=== PATIENT | female | born 1960 | race Caucasian/White ===

== ENCOUNTER 2018-08-02 12:26 | Inpatient (IN) | payer OTHER ==
[~2018-08-02] VITALS: Ht 170.2 cm; Wt 88.1 kg
[~2018-08-02 12:26] MED LIST: HYDR-3237 PO; METF500T17 PO; SULF1TAB24 PO
[2018-08-02] MEDS ORDERED: CEFTRIAXONE PMX 1GM/50ML 50 ML IVPB ONE (13:00)
[2018-08-02] MEDS ORDERED: SODIUM CHLORIDE FLUSH 10ML SYR IVF ONE (13:00)
[2018-08-02] MEDS ORDERED: CEFTRIAXONE PMX 1GM/50ML 50 ML ONE (13:13)
--- NOTE | 2018-08-02 13:16 | NUR ---
BLOOD CULTURES X 2 COLLECTED BY LAB, PT IN BED, NAD, NO NEEDS AT THIS TIME, RN TO INITIATE ABX PER MAR
[2018-08-02 13:21] LABS: BASOPHILS # (AUTO) 0.09 x10^3/uL (0-0.1); BASOPHILS % (AUTO) 1 % (0-1); EOSINOPHILS # (AUTO) 0.25 x10^3/uL (0-0.4); EOSINOPHILS % (AUTO) 2 % (1-7); LYMPHOCYTES # (AUTO) 2.23 x10^3/uL (1-3.4); LYMPHOCYTES % (AUTO) 19 % (22-44); MD NO; MEAN CORPUSCULAR HEMOGLOBIN 28.2 pg (27.0-34.8); MEAN CORPUSCULAR VOLUME 82.9 fL (80-100); MEAN PLATELET VOLUME 8.5 fL (7.4-10.4); MONOCYTES # (AUTO) 0.68 x10^3/uL (0.2-0.8); MONOCYTES % (AUTO) 6 % (2-9); NEUTROPHILS # (AUTO) 8.37 x10^3/uL (1.8-6.8); NEUTROPHILS % (AUTO) 72 % (42-75); PLATELET COUNT 363 x10^3/uL (130-400); RED BLOOD COUNT 4.37 x10^6/uL (3.82-5.3); RED CELL DISTRIBUTION WIDTH 14.6 % (9.6-15.2)
[2018-08-02 13:29] LABS: ALBUMIN 3.3 g/dL (3.4-5.0); ANION GAP 8 mmol/L (5-15); CALCIUM 8.5 mg/dL (8.5-10.1); CHLORIDE 106 mmol/L (98-107); CREATININE 1.21 mg/dL (0.55-1.02)
--- NOTE | 2018-08-02 14:35 | NUR ---
BREAK RN: PT PLACED ON CONT PULSE OX, NIBP. VSS. NO ACUTE DISTRESS NOTED. ROCEPHIN COMPLETED. NO NEEDS REQUESTED AT THIS TIME.
--- NOTE | 2018-08-02 14:55 | NUR ---
BREAK RN: BEDSIDE REPORT TO OSMAN PELLETIER.
[2018-08-02] MEDS ORDERED: SODIUM CHLORIDE FLUSH 10ML SYR IVF PRN (15:00)
[2018-08-02] MEDS ORDERED: DULO60CA55 PO (15:17)
[2018-08-02] MEDS ORDERED: TRAZ300T2 PO (15:17)
[2018-08-02] MEDS ORDERED: INSU100V13 SC ×2 (15:17)
--- NOTE | 2018-08-02 15:31 | NUR ---
HOSPTIALIST AT BEDSIDE TO DISCUSS POC
[2018-08-02 15:42] LABS: HCT (SEDRATE) 36.3 % (34.6-47.8)
[2018-08-02] MEDS ORDERED: hydrALAzine 20 MG/ML, 1ML IVPush PRN (16:00)
[2018-08-02] MEDS ORDERED: ACETAMINOPHEN 325 MG TABLET PO PRN ×2 (16:00→21:00)
[2018-08-02] MEDS ORDERED: VANCOMYCIN PER PHARMACY MC PRN (16:00)
[2018-08-02] MEDS ORDERED: ONDANSETRON 2MG/ML, 2ML IVPush PRN (16:00)
[2018-08-02] MEDS ORDERED: OXYcodone/APAP 5/325MG TABLET PO PRN (16:00)
[2018-08-02] MEDS ORDERED: LABETALOL 5 MG/ML SYRINGE IVPush PRN (16:00)
[2018-08-02] MEDS ORDERED: NICOTINE 14MG/24 HR PATCH.TD24 ONE (16:24)
[2018-08-02] MEDS ORDERED: OXYcodone/APAP 5/325MG TABLET ONE (16:25)
[2018-08-02] MEDS ORDERED: DEXTROSE 50%, 50ML SYRINGE IVPush PRN (16:30)
[2018-08-02] MEDS ORDERED: GLUCAGON 1 MG IM PRN (16:30)
[2018-08-02] MEDS ORDERED: DEXTROSE 4 GM TAB.CHEW PO PRN (16:30)
--- NOTE | 2018-08-02 16:34 | NUR ---
KAM LARSON CALLED TO CLARIFY DIET ORDER, PT INFORMED THAT SURGEON WILL BE COMING TO ASSESS PT.
--- NOTE | 2018-08-02 16:37 | NUR ---
NEO STATES THAT SHE WILL CHANGE ANALGESIC ORDER TO IV SINCE PT IS NPO
[2018-08-02 16:47] LABS: HEMOGLOBIN A1C 7.8 % (4.2-6.3)
[2018-08-02] MEDS: AMPICILLIN/SULBACTAM 3 GM in SODIUM CHLORIDE 0.9% 100 ML IV SCH ×2 (16:51→23:18)
[2018-08-02] MEDS: NICOTINE 14MG/24 HR PATCH.TD24 TD SCH (16:52)
[2018-08-02] MEDS ORDERED: morphine SULFATE 10 MG/ML, 1ML IVPush PRN (17:00)
[2018-08-02] MEDS ORDERED: MORPHINE SULFATE 4 MG/ML, 1ML ONE (17:02)
[2018-08-02] MEDS ORDERED: MORPHINE SULFATE 4 MG/ML, 1ML IVPush PRN (17:33)
[2018-08-02 17:44] VITALS: BP 105/65
[2018-08-02] MEDS ORDERED: PHARMACOKINETIC MONITORING MC PRN (18:30)
[2018-08-02] MEDS ORDERED: PHARMACOKINETIC CONSULTATION MC ONE (18:30)
[2018-08-02 18:52] VITALS: BP 111/73
[2018-08-02] MEDS: VANCOMYCIN 1,400 MG in SODIUM CHLORIDE 0.9% 250 ML IV SCH (19:31)
[2018-08-02] MEDS: INSULIN LISPRO 100 UNITS/ML, PEN SQ-INSULIN SCH (20:01)
[2018-08-02] MEDS ORDERED: FENTANYL PF 100 MCG/2ML ONE (20:42)
[2018-08-02] MEDS ORDERED: MIDAZOLAM 1 MG/ML, 2ML ONE (20:42)
[2018-08-02] MEDS ORDERED: FENTANYL PF 100 MCG/2ML IV PRN (21:00)
[2018-08-02] MEDS: TRAZODONE 150MG TABLET PO SCH (21:00)
[2018-08-02] MEDS ORDERED: PROMETHAZINE 25 MG/ML, 1ML IV PRN (21:00)
[2018-08-02] MEDS ORDERED: OXYcodone 5 MG/5 ML ORAL.SOL UDC PO PRN ×2 (21:00→23:30)
[2018-08-02] MEDS ORDERED: LABETALOL 5MG/ML, 20ML IV PRN (21:00)
[2018-08-02] MEDS ORDERED: hydrALAzine 20 MG/ML, 1ML IV PRN (21:00)
[2018-08-02] MEDS ORDERED: ONDANSETRON 2MG/ML, 2ML IV PRN ×2 (21:00→23:30)
[2018-08-02] MEDS ORDERED: HYDROmorphone 2 MG/ML, 1ML IVPush PRN (21:00)
[2018-08-02] MEDS ORDERED: INSULIN DETEMIR 100 UNITS/ML, PEN SQ-INSULIN SCH (21:00)
[2018-08-02] MEDS ORDERED: BUPIVACAINE/PF 0.5% ONE (21:01)
[2018-08-02] MEDS ORDERED: BUPIVACAINE/PF 0.5% INFIL ONE (21:52)
[2018-08-02] MEDS ORDERED: DEXAMETHASONE 4 MG/ML, 1ML ONE (21:56)
[2018-08-02] MEDS ORDERED: ROCURONIUM 10MG/ML,5ML ONE (21:56)
[2018-08-02] MEDS ORDERED: PROPOFOL 10 MG/ML, 20ML ONE (21:56)
[2018-08-02] MEDS ORDERED: ONDANSETRON 2MG/ML, 2ML ONE (21:56)
[2018-08-02] MEDS ORDERED: OXYcodone 5 MG/5 ML ORAL.SOL UDC ONE (22:27)
[2018-08-02] MEDS: DULOXETINE 30 MG CAPSULE.DR PO SCH (23:13)
[2018-08-02] MEDS: SODIUM CHLORIDE FLUSH 10ML SYR IVF SCH (23:16)
[2018-08-02] MEDS ORDERED: morphine SULFATE 10 MG/ML, 1ML IV PRN (23:30)
[2018-08-02] MEDS ORDERED: MORPHINE SULFATE 4 MG/ML, 1ML IV PRN (23:30)
[2018-08-02] MEDS ORDERED: SODIUM CHLORIDE 0.9% 1,000 ML IV SCH (23:30)
[2018-08-03] MEDS: INSULIN GLARGINE 100 UNITS/ML, PEN SQ-INSULIN SCH ×3 (00:25→21:04)
[2018-08-03 01:00] VITALS: BP 110/63
[2018-08-03] MEDS: AMPICILLIN/SULBACTAM 3 GM in SODIUM CHLORIDE 0.9% 100 ML IV SCH ×4 (05:16→23:20)
[2018-08-03 05:40] LABS: BASOPHILS # (AUTO) 0.04 x10^3/uL (0-0.1); BASOPHILS % (AUTO) 1 % (0-1); EOSINOPHILS # (AUTO) 0.02 x10^3/uL (0-0.4); EOSINOPHILS % (AUTO) 0 % (1-7); LYMPHOCYTES # (AUTO) 0.85 x10^3/uL (1-3.4); LYMPHOCYTES % (AUTO) 10 % (22-44); MD NO; MEAN CORPUSCULAR HEMOGLOBIN 28.4 pg (27.0-34.8); MEAN CORPUSCULAR VOLUME 83.5 fL (80-100); MEAN PLATELET VOLUME 8.6 fL (7.4-10.4); MONOCYTES % (AUTO) 1 % (2-9); NEUTROPHILS # (AUTO) 7.39 x10^3/uL (1.8-6.8); NEUTROPHILS % (AUTO) 88 % (42-75); PLATELET COUNT 298 x10^3/uL (130-400)
[2018-08-03 05:41] LABS: CHLORIDE 107 mmol/L (98-107)
[2018-08-03 06:00] LABS: ANION GAP 5 mmol/L (5-15); CALCIUM 8.2 mg/dL (8.5-10.1)
[2018-08-03 06:42] VITALS: BP 99/61
[2018-08-03] MEDS: INSULIN LISPRO 100 UNITS/ML, PEN SQ-INSULIN SCH ×4 (07:00→21:05)
[2018-08-03] MEDS: HEPARIN 5,000 UNITS/ML, 1ML SQ SCH ×3 (07:30→23:20)
[2018-08-03] MEDS ORDERED: OXYcodone 5 MG/5 ML ORAL.SOL UDC PO PRN (07:30)
[2018-08-03] MEDS: HYDROcodone/APAP 5/325 TABLET PO PRN ×2 (07:46→16:58)
[2018-08-03] MEDS: SODIUM CHLORIDE FLUSH 10ML SYR IVF SCH ×4 (09:00→20:54)
[2018-08-03] MEDS ORDERED: MORPHINE SULFATE 4 MG/ML, 1ML IVPush PRN (09:33)
[2018-08-03] MEDS: VANCOMYCIN 1,400 MG in SODIUM CHLORIDE 0.9% 250 ML IV SCH (09:54)
[2018-08-03] MEDS: DOCUSATE 100 MG CAPSULE PO SCH ×2 (09:56→20:53)
[2018-08-03] MEDS: DULOXETINE 30 MG CAPSULE.DR PO SCH ×2 (09:57→20:53)
[2018-08-03 14:36] VITALS: BP 103/63
[2018-08-03] MEDS: NICOTINE 14MG/24 HR PATCH.TD24 TD SCH (16:58)
[2018-08-03 19:50] VITALS: BP 120/70
[2018-08-03] MEDS: TRAZODONE 150MG TABLET PO SCH (21:00)
[2018-08-03] MEDS ORDERED: SODIUM CHLORIDE 0.9% 1,000 ML IV SCH (23:30)
[2018-08-04 03:02] VITALS: BP 139/89
[2018-08-04] MEDS ORDERED: VANCOMYCIN 1,400 MG in SODIUM CHLORIDE 0.9% 250 ML IV SCH (04:00)
[2018-08-04] MEDS: AMPICILLIN/SULBACTAM 3 GM in SODIUM CHLORIDE 0.9% 100 ML IV SCH ×2 (05:21→11:28)
[2018-08-04 06:27] LABS: CHLORIDE 109 mmol/L (98-107)
[2018-08-04 06:33] LABS: ANION GAP 4 mmol/L (5-15); CALCIUM 8.2 mg/dL (8.5-10.1); CREATININE 1.15 mg/dL (0.55-1.02)
[2018-08-04 06:41] VITALS: BP 111/71
[2018-08-04] MEDS: INSULIN LISPRO 100 UNITS/ML, PEN SQ-INSULIN SCH ×4 (07:00→20:39)
[2018-08-04] MEDS ORDERED: MORPHINE SULFATE 4 MG/ML, 1ML IVPush PRN (07:30)
[2018-08-04] MEDS: HYDROcodone/APAP 5/325 TABLET PO PRN ×2 (07:41→20:38)
[2018-08-04] MEDS: DOCUSATE 100 MG CAPSULE PO SCH ×2 (09:00→20:38)
[2018-08-04] MEDS: INSULIN GLARGINE 100 UNITS/ML, PEN SQ-INSULIN SCH ×2 (09:00→20:39)
[2018-08-04] MEDS: SODIUM CHLORIDE FLUSH 10ML SYR IVF SCH ×4 (09:00→19:28)
[2018-08-04] MEDS: HEPARIN 5,000 UNITS/ML, 1ML SQ SCH ×3 (09:12→23:03)
[2018-08-04] MEDS: NICOTINE 14MG/24 HR PATCH.TD24 TD SCH (09:13)
[2018-08-04] MEDS: DULOXETINE 30 MG CAPSULE.DR PO SCH ×2 (09:14→20:38)
[2018-08-04 12:47] VITALS: BP 104/67
[2018-08-04] MEDS: ACETAMINOPHEN 325 MG TABLET PO PRN (16:35)
[2018-08-04] MEDS: DAPTOMYCIN 600 MG in SODIUM CHLORIDE 0.9% 100 ML IV SCH (19:27)
[2018-08-04 19:29] VITALS: BP 119/73
[2018-08-04] MEDS: SODIUM CHLORIDE 0.9% 1,000 ML IV SCH (23:03)
[2018-08-05 04:04] VITALS: BP 115/73
[2018-08-05 06:36] LABS: HCT (SEDRATE) 31.1 % (34.6-47.8)
[2018-08-05] MEDS: INSULIN LISPRO 100 UNITS/ML, PEN SQ-INSULIN SCH ×4 (07:00→20:54)
[2018-08-05 07:21] VITALS: BP 132/80
[2018-08-05] MEDS: metFORMIN 850 MG TABLET PO SCH ×2 (08:49→16:36)
[2018-08-05] MEDS: DOCUSATE 100 MG CAPSULE PO SCH ×2 (08:49→20:54)
[2018-08-05] MEDS: NICOTINE 14MG/24 HR PATCH.TD24 TD SCH (08:50)
[2018-08-05] MEDS: HEPARIN 5,000 UNITS/ML, 1ML SQ SCH ×2 (08:50→17:25)
[2018-08-05] MEDS: DULOXETINE 30 MG CAPSULE.DR PO SCH ×2 (08:50→20:54)
[2018-08-05] MEDS: SODIUM CHLORIDE FLUSH 10ML SYR IVF SCH ×4 (08:55→20:54)
[2018-08-05] MEDS: HYDROcodone/APAP 5/325 TABLET PO PRN (12:53)
[2018-08-05 12:59] VITALS: BP 127/81
[2018-08-05] MEDS: SODIUM CHLORIDE 0.9% 1,000 ML IV SCH (15:41)
[2018-08-05 19:00] VITALS: BP 116/70
[2018-08-05] MEDS: DAPTOMYCIN 600 MG in SODIUM CHLORIDE 0.9% 100 ML IV SCH (20:45)
[2018-08-05] MEDS: INSULIN GLARGINE 100 UNITS/ML, PEN SQ-INSULIN SCH (20:53)
[2018-08-06] MEDS: HEPARIN 5,000 UNITS/ML, 1ML SQ SCH ×3 (02:12→17:37)
[2018-08-06 02:19] VITALS: BP 116/72
[2018-08-06 05:42] LABS: ANION GAP 7 mmol/L (5-15); CALCIUM 8.6 mg/dL (8.5-10.1); CHLORIDE 108 mmol/L (98-107)
[2018-08-06 05:43] LABS: CREATININE 1.02 mg/dL (0.55-1.02)
[2018-08-06] MEDS: INSULIN LISPRO 100 UNITS/ML, PEN SQ-INSULIN SCH ×4 (07:00→20:59)
[2018-08-06 07:30] VITALS: BP 131/80
[2018-08-06] MEDS: NICOTINE 14MG/24 HR PATCH.TD24 TD SCH (08:02)
[2018-08-06] MEDS: metFORMIN 850 MG TABLET PO SCH ×2 (08:02→17:38)
[2018-08-06] MEDS: DULOXETINE 30 MG CAPSULE.DR PO SCH ×2 (08:02→20:47)
[2018-08-06] MEDS: SODIUM CHLORIDE FLUSH 10ML SYR IVF SCH ×4 (09:00→20:52)
[2018-08-06 13:43] VITALS: BP 111/70
[2018-08-06] MEDS: HYDROcodone/APAP 5/325 TABLET PO PRN (15:08)
[2018-08-06 19:15] VITALS: BP 121/76
[2018-08-06] MEDS: DAPTOMYCIN 600 MG in SODIUM CHLORIDE 0.9% 100 ML IV SCH (20:47)
[2018-08-06] MEDS: INSULIN GLARGINE 100 UNITS/ML, PEN SQ-INSULIN SCH (20:58)
[2018-08-07 01:40] VITALS: BP 147/83
[2018-08-07] MEDS: HEPARIN 5,000 UNITS/ML, 1ML SQ SCH ×3 (02:00→17:30)
[2018-08-07] MEDS: INSULIN LISPRO 100 UNITS/ML, PEN SQ-INSULIN SCH ×4 (07:00→19:40)
[2018-08-07 07:20] VITALS: BP 117/75
[2018-08-07] MEDS: NICOTINE 14MG/24 HR PATCH.TD24 TD SCH (08:19)
[2018-08-07] MEDS: DULOXETINE 30 MG CAPSULE.DR PO SCH ×2 (08:19→20:49)
[2018-08-07] MEDS: metFORMIN 850 MG TABLET PO SCH ×2 (08:19→17:30)
[2018-08-07] MEDS: ACETAMINOPHEN 325 MG TABLET PO PRN (08:19)
[2018-08-07] MEDS: SODIUM CHLORIDE FLUSH 10ML SYR IVF SCH ×4 (08:26→20:50)
[2018-08-07 13:35] VITALS: BP 113/70
[2018-08-07 19:38] VITALS: BP 119/74
[2018-08-07] MEDS: HYDROcodone/APAP 5/325 TABLET PO PRN (19:43)
[2018-08-07] MEDS: DAPTOMYCIN 600 MG in SODIUM CHLORIDE 0.9% 100 ML IV SCH (19:43)
[2018-08-07] MEDS: INSULIN GLARGINE 100 UNITS/ML, PEN SQ-INSULIN SCH (20:49)
[2018-08-08 01:38] VITALS: BP 111/68
[2018-08-08] MEDS: HEPARIN 5,000 UNITS/ML, 1ML SQ SCH ×3 (02:00→16:35)
[2018-08-08] MEDS: INSULIN LISPRO 100 UNITS/ML, PEN SQ-INSULIN SCH ×4 (07:00→19:29)
[2018-08-08] MEDS: SODIUM CHLORIDE FLUSH 10ML SYR IVF SCH ×4 (07:22→20:28)
[2018-08-08 07:51] VITALS: BP 121/74
[2018-08-08] MEDS: DULOXETINE 30 MG CAPSULE.DR PO SCH ×2 (09:05→20:28)
[2018-08-08] MEDS: metFORMIN 850 MG TABLET PO SCH ×2 (09:05→16:34)
[2018-08-08] MEDS: NICOTINE 14MG/24 HR PATCH.TD24 TD SCH (09:05)
[2018-08-08] MEDS: HYDROcodone/APAP 5/325 TABLET PO PRN ×2 (09:05→16:34)
[2018-08-08] MEDS: metroNIDAZOLE 500 MG TABLET PO SCH ×2 (11:55→19:33)
[2018-08-08 14:22] VITALS: BP 112/73
[2018-08-08 18:40] VITALS: BP 104/69
[2018-08-08] MEDS: DAPTOMYCIN 600 MG in SODIUM CHLORIDE 0.9% 100 ML IV SCH (19:33)
[2018-08-08] MEDS: LACTOBACILLUS CHEW TABLET PO SCH (20:28)
[2018-08-09] MEDS: HEPARIN 5,000 UNITS/ML, 1ML SQ SCH ×3 (01:00→17:00)
[2018-08-09 02:20] VITALS: BP 109/72
[2018-08-09] MEDS: metroNIDAZOLE 500 MG TABLET PO SCH ×3 (03:35→19:53)
[2018-08-09] MEDS: INSULIN LISPRO 100 UNITS/ML, PEN SQ-INSULIN SCH ×4 (07:00→19:53)
[2018-08-09] MEDS: SODIUM CHLORIDE FLUSH 10ML SYR IVF SCH ×4 (07:17→21:49)
[2018-08-09 07:25] VITALS: BP 107/71
[2018-08-09] MEDS: HYDROcodone/APAP 5/325 TABLET PO PRN (07:42)
[2018-08-09] MEDS: metFORMIN 850 MG TABLET PO SCH ×2 (07:42→17:41)
[2018-08-09] MEDS: NICOTINE 14MG/24 HR PATCH.TD24 TD SCH (07:42)
[2018-08-09] MEDS: LACTOBACILLUS CHEW TABLET PO SCH ×3 (07:42→21:49)
[2018-08-09] MEDS: DULOXETINE 30 MG CAPSULE.DR PO SCH ×2 (07:43→21:49)
[2018-08-09 13:52] VITALS: BP 107/71
[2018-08-09 18:55] VITALS: BP 97/61
[2018-08-09] MEDS: DAPTOMYCIN 600 MG in SODIUM CHLORIDE 0.9% 100 ML IV SCH (19:53)
[2018-08-10] MEDS: HEPARIN 5,000 UNITS/ML, 1ML SQ SCH ×3 (01:00→16:46)
[2018-08-10 01:20] VITALS: BP 99/64
[2018-08-10] MEDS: metroNIDAZOLE 500 MG TABLET PO SCH ×3 (03:47→20:48)
[2018-08-10 06:40] VITALS: BP 109/71
[2018-08-10] MEDS: INSULIN LISPRO 100 UNITS/ML, PEN SQ-INSULIN SCH ×4 (07:00→20:52)
[2018-08-10] MEDS: SODIUM CHLORIDE FLUSH 10ML SYR IVF SCH ×4 (09:00→20:42)
[2018-08-10] MEDS: metFORMIN 850 MG TABLET PO SCH ×2 (10:13→16:45)
[2018-08-10] MEDS: LACTOBACILLUS CHEW TABLET PO SCH ×3 (10:13→20:43)
[2018-08-10] MEDS: NICOTINE 14MG/24 HR PATCH.TD24 TD SCH (10:14)
[2018-08-10] MEDS: DULOXETINE 30 MG CAPSULE.DR PO SCH ×2 (10:14→20:43)
[2018-08-10] MEDS: HYDROcodone/APAP 5/325 TABLET PO PRN ×2 (13:05→20:55)
[2018-08-10 14:00] VITALS: BP 106/70
[2018-08-10 19:00] VITALS: BP 122/79
[2018-08-10] MEDS: DAPTOMYCIN 600 MG in SODIUM CHLORIDE 0.9% 100 ML IV SCH (20:43)
[2018-08-10] MEDS: TRAZODONE 150MG TABLET PO PRN (22:20)
[2018-08-11] MEDS: HEPARIN 5,000 UNITS/ML, 1ML SQ SCH ×3 (00:26→16:52)
[2018-08-11 02:57] VITALS: BP 100/63
[2018-08-11] MEDS: metroNIDAZOLE 500 MG TABLET PO SCH ×3 (05:21→21:15)
[2018-08-11] MEDS: INSULIN LISPRO 100 UNITS/ML, PEN SQ-INSULIN SCH ×2 (07:00→21:16)
[2018-08-11] MEDS: SODIUM CHLORIDE FLUSH 10ML SYR IVF SCH ×4 (07:25→21:16)
[2018-08-11 07:30] VITALS: BP 100/57
[2018-08-11] MEDS: DULOXETINE 30 MG CAPSULE.DR PO SCH ×2 (08:01→21:15)
[2018-08-11] MEDS: metFORMIN 850 MG TABLET PO SCH ×2 (08:01→16:51)
[2018-08-11] MEDS: NICOTINE 14MG/24 HR PATCH.TD24 TD SCH (08:01)
[2018-08-11] MEDS: LACTOBACILLUS CHEW TABLET PO SCH ×3 (08:01→21:15)
[2018-08-11 14:00] VITALS: BP 98/59
[2018-08-11] MEDS: HYDROcodone/APAP 5/325 TABLET PO PRN (16:55)
[2018-08-11 18:45] VITALS: BP 91/60
[2018-08-11] MEDS: DAPTOMYCIN 600 MG in SODIUM CHLORIDE 0.9% 100 ML IV SCH (19:43)
[2018-08-11] MEDS: TRAZODONE 150MG TABLET PO PRN (21:15)
[2018-08-12] MEDS: HEPARIN 5,000 UNITS/ML, 1ML SQ SCH ×3 (01:11→17:16)
[2018-08-12 02:26] VITALS: BP 99/63
[2018-08-12] MEDS: metroNIDAZOLE 500 MG TABLET PO SCH ×3 (04:52→20:45)
[2018-08-12 06:04] LABS: BASOPHILS # (AUTO) 0.06 x10^3/uL (0-0.1); BASOPHILS % (AUTO) 1 % (0-1); EOSINOPHILS # (AUTO) 0.29 x10^3/uL (0-0.4); EOSINOPHILS % (AUTO) 3 % (1-7); LYMPHOCYTES # (AUTO) 2.81 x10^3/uL (1-3.4); LYMPHOCYTES % (AUTO) 24 % (22-44); MD NO; MEAN CORPUSCULAR HEMOGLOBIN 28.5 pg (27.0-34.8); MEAN CORPUSCULAR HGB CONC 34.2 g/dL (32.4-35.8); MEAN CORPUSCULAR VOLUME 83.2 fL (80-100); MEAN PLATELET VOLUME 9.1 fL (7.4-10.4); MONOCYTES # (AUTO) 0.65 x10^3/uL (0.2-0.8); MONOCYTES % (AUTO) 6 % (2-9); NEUTROPHILS % (AUTO) 67 % (42-75); PLATELET COUNT 385 x10^3/uL (130-400); RED BLOOD COUNT 4.49 x10^6/uL (3.82-5.3); RED CELL DISTRIBUTION WIDTH 14.7 % (9.6-15.2)
[2018-08-12 06:11] LABS: CHLORIDE 107 mmol/L (98-107)
[2018-08-12 06:22] LABS: ALANINE AMINOTRANSFERASE 23 U/L (12-78); ALBUMIN 3.4 g/dL (3.4-5.0); ALKALINE PHOSPHATASE 87 U/L (45-117); ANION GAP 9 mmol/L (5-15); BILIRUBIN,TOTAL 0.3 mg/dL (0.2-1.0); CALCIUM 9.1 mg/dL (8.5-10.1); CREATININE 1.28 mg/dL (0.55-1.02); TOTAL PROTEIN 7.8 g/dL (6.4-8.2)
[2018-08-12 06:35] LABS: HCT (SEDRATE) 37.3 % (34.6-47.8)
[2018-08-12 07:08] VITALS: BP 94/60
[2018-08-12] MEDS: DULOXETINE 30 MG CAPSULE.DR PO SCH ×2 (08:12→20:45)
[2018-08-12] MEDS: metFORMIN 850 MG TABLET PO SCH ×2 (08:12→17:16)
[2018-08-12] MEDS: LACTOBACILLUS CHEW TABLET PO SCH ×3 (08:12→20:45)
[2018-08-12] MEDS: INSULIN LISPRO 100 UNITS/ML, PEN SQ-INSULIN SCH ×2 (08:13→20:54)
[2018-08-12] MEDS: NICOTINE 14MG/24 HR PATCH.TD24 TD SCH (08:13)
[2018-08-12] MEDS: SODIUM CHLORIDE FLUSH 10ML SYR IVF SCH ×4 (08:16→20:47)
[2018-08-12] MEDS: HYDROcodone/APAP 5/325 TABLET PO PRN ×2 (10:05→20:45)
[2018-08-12 12:22] VITALS: BP 93/61
[2018-08-12 19:24] VITALS: BP 105/70
[2018-08-12] MEDS: DAPTOMYCIN 600 MG in SODIUM CHLORIDE 0.9% 100 ML IV SCH (20:44)
[2018-08-13] MEDS: HEPARIN 5,000 UNITS/ML, 1ML SQ SCH ×3 (01:00→17:07)
[2018-08-13 01:17] VITALS: BP 93/61
[2018-08-13] MEDS: HYDROcodone/APAP 5/325 TABLET PO PRN ×2 (05:24→17:00)
[2018-08-13] MEDS: metroNIDAZOLE 500 MG TABLET PO SCH ×2 (05:24→13:17)
[2018-08-13 07:14] VITALS: BP 96/62
[2018-08-13] MEDS: metFORMIN 850 MG TABLET PO SCH ×2 (08:36→17:07)
[2018-08-13] MEDS: INSULIN LISPRO 100 UNITS/ML, PEN SQ-INSULIN SCH (09:00)
[2018-08-13] MEDS: DULOXETINE 30 MG CAPSULE.DR PO SCH (09:27)
[2018-08-13] MEDS: NICOTINE 14MG/24 HR PATCH.TD24 TD SCH (09:27)
[2018-08-13] MEDS: LACTOBACILLUS CHEW TABLET PO SCH ×2 (09:27→17:07)
[2018-08-13] MEDS: SODIUM CHLORIDE FLUSH 10ML SYR IVF SCH (09:28)
[2018-08-13] MEDS ORDERED: METF850T PO (14:53)
[2018-08-13] MEDS ORDERED: NICO-486 TD (14:53)
[2018-08-13] MEDS ORDERED: ACET325T14 PO (14:53)
[2018-08-13] MEDS ORDERED: ACID1TAB7 PO (14:53)
[2018-08-13 15:40] VITALS: BP 102/66
[2018-08-13] MEDS: DAPTOMYCIN 600 MG in SODIUM CHLORIDE 0.9% 100 ML IV SCH (16:05)
== END 2018-08-13 18:40 | disposition home or self-care (01) | DRG 853 ==
LOC: ED 13:05 → EDIP 14:16 → 3NE 17:30
PROVIDERS: ADMIT Internal Medicine; ATTEND Internal Medicine
PROC: 0Y6P0Z0 Detachment at Right 1st Toe, Complete, Open Approach (ICD-10-PCS; 2018-08-02)
PROC: 02HV33Z Insertion of Infusion Device into Superior Vena Cava, Percutaneous Approach (ICD-10-PCS; principal; 2018-08-08)
PROC: B5181ZA Fluoroscopy of Superior Vena Cava using Low Osmolar Contrast, Guidance (ICD-10-PCS; 2018-08-08)
PROC: B548ZZA Ultrasonography of Superior Vena Cava, Guidance (ICD-10-PCS; 2018-08-08)
DX: A41.9 Sepsis, unspecified organism (principal); N17.0 Acute kidney failure with tubular necrosis; M86.171 Other acute osteomyelitis, right ankle and foot; M86.671 Other chronic osteomyelitis, right ankle and foot; E11.621 Type 2 diabetes mellitus with foot ulcer; E11.69 Type 2 diabetes mellitus with other specified complication; E11.65 Type 2 diabetes mellitus with hyperglycemia; E66.9 Obesity, unspecified; N18.2 Chronic kidney disease, stage 2 (mild); E11.22 Type 2 diabetes mellitus with diabetic chronic kidney disease; F17.210 Nicotine dependence, cigarettes, uncomplicated; I50.9 Heart failure, unspecified; L60.0 Ingrowing nail; L97.519 Non-pressure chronic ulcer of other part of right foot with unspecified severity; Z79.4 Long term (current) use of insulin; Z68.30 Body mass index [BMI] 30.0-30.9, adult; Z82.49 Family history of ischemic heart disease and other diseases of the circulatory system; Z83.3 Family history of diabetes mellitus; Z89.429 Acquired absence of other toe(s), unspecified side; Z91.19 Patient's noncompliance with other medical treatment and regimen
CPT/HCPCS: 36415; 36573; 80048; 80053; 82040; 82962; 83036; 83605; 84443; 85025; 85651; 86140; 87040; 87070; 87075; 87076; 87077; 87147; 87176; 87186; 87205; 88305; 88311; 96365; 96375; G0378; J0295; J0696; J0878; J1100; J1644; J2250; J2405; J2704; J3010; J3370; C1751; J1815; J2270; J7030; J7050

== ENCOUNTER 2020-12-03 13:47 | Emergency (ER) | payer OTHER ==
[~2020-12-03] VITALS: Ht 170.2 cm; Wt 93.5 kg
[~2020-12-03 13:47] MED LIST changes: +ACET325T14 PO; +ACID1TAB7 PO; +DULO60CA56 PO; +INSU100V13 SC; +METF850T PO; +NICO-486 TD; +SULF-23 PO; -SULF1TAB24 PO; +TRAZ300T2 PO
[2020-12-03 14:22] VITALS: BP 152/77
== END 2020-12-03 17:32 | disposition left against medical advice (07) ==
LOC: ED 17:26
DX: M79.662 Pain in left lower leg (principal)
CPT/HCPCS: 99284